=== PATIENT | female | born 1950 | race Caucasian/White ===

== ENCOUNTER → 2018-11-24 09:29 | Outpatient (CLI) | payer MEDICARE, SELFPAY ==
[2018-11-24 10:24] LABS: Basophils % 0.8 % (0.1-2.0); Eosinophils # 0.1 K/mm3 (0.0-0.4); Eosinophils % 2.4 % (0.1-12.0); Hematocrit 34.4 % (37.0-47.0); Lymphocytes # 0.8 K/mm3 (0.7-4.5); Lymphocytes % 17.4 % (10-50); Mean Corpuscular HGB Conc 31.9 g/dL (31.8-35.4); Mean Corpuscular Hemoglobin 30.1 pg (27.0-31.2); Mean Corpuscular Volume 94.1 fl (81-99); Mean Platelet Volume 6.7 fl (7.4-10.4); Monocytes # 0.2 K/mm3 (0.1-1.0); Monocytes % 4.7 % (1.7-9.3); Neutrophils # 3.6 K/mm3 (1.8-7.8); Neutrophils % 74.7 % (37.0-80.0); Platelet Count 202 K/mm3 (142-424); Red Blood Count 3.66 M/mm3 (4.20-5.40); Red Cell Distribution Width 14.1 % (11.5-17.5); White Blood Count 4.8 K/mm3 (4.8-10.8)
[2018-11-24 20:01] LABS: Alanine Aminotransferase 18 U/L (12-78); Albumin/Globulin Ratio 1.1 (1.1-1.8); Alkaline Phosphatase 59 U/L (46-116); Aspartate Amino Transferase 21 U/L (15-37); Bilirubin,Total 0.5 mg/dL (0.2-1.0); Blood Urea Nitrogen 46 mg/dL (7-18); Carbon Dioxide 26 mmol/L (21.0-32.0); Chloride 102 mmol/L (98-107); Chol/HDL Ratio 3.7 (1-3.5); Cholesterol 141 mg/dL (140-200); Creatinine,Serum 1.93 mg/dL (0.55-1.02); Estimated Glomerular Filt Rate 26 ml/min (>60); Ferritin 105 ng/mL (8-388); GFR (African American) 31 ML/MIN (>60); Globulin 3.5 gm/dl (1.3-3.2); Glucose 109 mg/dL (74-106); HDL Cholesterol 38 mg/dL (29-89); LDL Cholesterol 76 mg/dL (0-130); Sodium 141 mmol/L (136-145); Total Protein,Serum 7.5 gm/dL (6.4-8.2); Triglycerides 133 mg/dL (30-200); VLDL Cholesterol 27 mg/dL (0-40)
[2018-11-25 07:28] LABS: Vitamin D 25 Hydroxy 61.3 ng/mL (30.0-100.0)
[2018-11-25 08:33] LABS: Iron 62 ug/dL (27-139); UIBC 245 ug/dL (118-369)
[2018-11-25 09:02] LABS: Iron Saturation 20 % (15-55); Vitamin B12 593 pg/mL (232-1245)
== END ==
PROVIDERS: Visit Provider Nurse Practitioner Family
DX: D64.9 Anemia, unspecified (principal); E11.39 Type 2 diabetes mellitus with other diabetic ophthalmic complication; E78.5 Hyperlipidemia, unspecified; E03.9 Hypothyroidism, unspecified; N18.3 Chronic kidney disease, stage 3 (moderate); E53.8 Deficiency of other specified B group vitamins; E55.9 Vitamin D deficiency, unspecified
CPT/HCPCS: 36415; 80053; 80061; 82607; 82652; 82728; 83036; 83540; 83550; 84443; 85025

== ENCOUNTER → 2019-01-19 15:38 | Outpatient (CLI) | payer MEDICARE, OTHER, SELFPAY ==
--- NOTE | 2019-01-19 15:52 | XR_ITS ---
XR wrist RT min 3V HISTORY ITS.REASON: RT WRIST PAIN ORDERING PHYSICIAN: Sally Mayes APRN PATIENT AGE: 68 years Comparison: None FINDINGS There are severe osteoarthritic changes at the first metacarpal carpal joint with bony hypertrophic changes of the trapezium. There are osteoarthritic changes of the scaphotrapezium joint and the second metacarpal carpal joint. 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
[2019-01-19 16:02] LABS: Basophils % 0.5 % (0.1-2.0); Eosinophils % 0.2 % (0.1-12.0); Hematocrit 30.8 % (37.0-47.0); Hemoglobin 10.3 g/dL (12.2-16.2); Lymphocytes % 12.1 % (10-50); Mean Corpuscular HGB Conc 33.5 g/dL (31.8-35.4); Mean Corpuscular Hemoglobin 29.2 pg (27.0-31.2); Mean Corpuscular Volume 87.2 fl (81-99); Mean Platelet Volume 7.6 fl (7.4-10.4); Monocytes # 0.5 K/mm3 (0.1-1.0); Monocytes % 6.2 % (1.7-9.3); Neutrophils # 6.9 K/mm3 (1.8-7.8); Neutrophils % 81.1 % (37.0-80.0); Platelet Count 282 K/mm3 (142-424); Red Blood Count 3.53 M/mm3 (4.20-5.40); Red Cell Distribution Width 13.6 % (11.5-17.5); White Blood Count 8.5 K/mm3 (4.8-10.8)
[2019-01-19 17:49] LABS: Erythrocyte Sedimentation Rate 115 mm/hr (0-30)
[2019-01-19 18:36] LABS: Anion Gap 14.2 mEq/L (5-15); Blood Urea Nitrogen 19 mg/dL (7-18); C-Reactive Protein 10.8 mg/L (0.0-0.9); Calcium 8.6 mg/dL (8.5-10.1); Carbon Dioxide 28 mmol/L (21.0-32.0); Chloride 98 mmol/L (98-107); Creatinine,Serum 1.67 mg/dL (0.55-1.02); Estimated Glomerular Filt Rate 31 ml/min (>60); GFR (African American) 37 ML/MIN (>60); Glucose 115 mg/dL (74-106); Potassium 4.2 mmoL/L (3.5-5.1); Sodium 136 mmol/L (136-145); Uric Acid 6.5 mg/dL (2.6-7.2)
== END ==
PROVIDERS: Visit Provider Nurse Practitioner Family
DX: M25.531 Pain in right wrist (principal)
CPT/HCPCS: 36415; 73110; 80048; 84550; 85025; 85651; 86140

== ENCOUNTER → 2020-06-20 16:28 | Outpatient (CLI) | payer MEDICARE, OTHER, SELFPAY ==
[2020-06-20 16:52] LABS: Eosinophils # 0.1 K/mm3 (0.0-0.4); Eosinophils % 1.9 % (0.1-12.0); Lymphocytes # 0.5 K/mm3 (0.7-4.5); Lymphocytes % 18.9 % (10-50); Mean Corpuscular HGB Conc 30.8 g/dL (31.8-35.4); Mean Corpuscular Hemoglobin 30.7 pg (27.0-31.2); Mean Corpuscular Volume 99.7 fl (81-99); Mean Platelet Volume 8.3 fl (7.4-10.4); Monocytes # 0.1 K/mm3 (0.1-1.0); Monocytes % 4.3 % (1.7-9.3); Neutrophils # 2.1 K/mm3 (1.8-7.8); Neutrophils % 73.8 % (37.0-80.0); Platelet Count 189 K/mm3 (142-424); Red Blood Count 2.38 M/mm3 (4.20-5.40); White Blood Count 2.9 K/mm3 (4.8-10.8)
[2020-06-20 16:59] LABS: Hematocrit 23.7 % (37.0-47.0); Hemoglobin 7.3 g/dL (12.2-16.2)
[2020-06-20 17:37] LABS: 25-OH Vitamin D, Total 46.6 ng/mL (30-100)
[2020-06-20 18:59] LABS: Hemoglobin A1C 4.7 % (4.0-6.0)
[2020-06-20 21:37] LABS: Alanine Aminotransferase 12 U/L (12-78); Albumin Level 4.2 g/dl (3.5-5.0); Albumin/Globulin Ratio 1.3 (1.1-1.8); Alkaline Phosphatase 74 U/L (38-126); Anion Gap 21.2 mEq/L (5-15); Aspartate Amino Transferase 37 U/L (14-36); Bilirubin,Total 0.5 mg/dl (0.2-1.3); Blood Urea Nitrogen 67 mg/dl (7-17); Carbon Dioxide 16 mmol/L (22.0-30.0); Chloride 104 mmol/L (98-107); Estimated Glomerular Filt Rate 7 ml/min (>60); GFR (African American) 8 ML/MIN (>60); Globulin 3.3 g/dL (1.3-3.2); Glucose 102 mg/dl (74-100); Potassium 5.2 mmoL/L (3.5-5.1); Sodium 136 mmol/L (136-145); Total Protein,Serum 7.5 g/dl (6.3-8.2)
[2020-06-20 22:10] LABS: Thyroid Stimulating Hormone 0.94 uIU/mL (0.465-4.68)
[2020-06-20 22:28] LABS: Vitamin B12 862 pg/mL (239-931)
== END ==
PROVIDERS: Visit Provider Nurse Practitioner Family
DX: I10 Essential (primary) hypertension (principal); E03.9 Hypothyroidism, unspecified; E53.8 Deficiency of other specified B group vitamins; E55.9 Vitamin D deficiency, unspecified; E11.39 Type 2 diabetes mellitus with other diabetic ophthalmic complication
CPT/HCPCS: 36415; 80053; 82306; 82607; 83036; 84443; 85025